=== PATIENT | female | born 1970 ===

== ENCOUNTER 2022-08-26 16:52 | Emergency (ER) | payer OTHER | END 2022-08-26 17:27 | disposition home or self-care (01) | LOC: LB.ED 16:52 | DX: S01.81XA Laceration without foreign body of other part of head, initial encounter (principal); Z88.5 Allergy status to narcotic agent; W22.8XXA Striking against or struck by other objects, initial encounter; Y92.096 Garden or yard of other non-institutional residence as the place of occurrence of the external cause | CPT/HCPCS: 12011; 99282 ==